=== PATIENT | male | born 1995 | race Hispanic/Latino ===

== ENCOUNTER 2017-07-02 18:24 | Emergency (ER) | payer OTHER ==
[~2017-07-02] VITALS: Ht 170.2 cm; Wt 77.2 kg
[2017-07-02] MEDS ORDERED: IBUP1TAB6 PO (19:44)
[2017-07-02] MEDS ORDERED: CYCL10TA PO (19:44)
[2017-07-02] MEDS ORDERED: CYCLOBENZAPRINE 10 MG TAB PO ONE (19:45)
[2017-07-02 19:51] VITALS: BP 140/68
== END 2017-07-02 19:55 | disposition home or self-care (01) ==
LOC: M ED 18:24
DX: S16.1XXA Strain of muscle, fascia and tendon at neck level, initial encounter (principal)

== ENCOUNTER 2018-02-25 10:33 | Emergency (ER) | payer OTHER ==
[2018-02-25] MEDS: NAPROXEN 250 MG TAB PO (11:56)
== END 2018-02-25 13:09 | disposition home or self-care (01) ==
LOC: M ED 10:33
DX: S80.01XA Contusion of right knee, initial encounter (principal); W10.8XXA Fall (on) (from) other stairs and steps, initial encounter; Y92.098 Other place in other non-institutional residence as the place of occurrence of the external cause
CPT/HCPCS: 73564

== ENCOUNTER 2018-09-02 17:28 | Emergency (ER) | payer OTHER ==
[~2018-09-02] VITALS: Ht 170.2 cm; Wt 83.2 kg
[~2018-09-02 17:28] MED LIST: CYCL10TA PO; IBUP1TAB6 PO; NAPR-50 PO
[2018-09-02] MEDS ORDERED: LIDOCAINE W/EPINEPHRINE 1% 20ML VIAL SC ONE (19:30)
[2018-09-02 19:59] VITALS: BP 131/68
== END 2018-09-02 20:01 | disposition home or self-care (01) ==
LOC: M ED 17:28
DX: S51.811A Laceration without foreign body of right forearm, initial encounter (principal); W26.0XXA Contact with knife, initial encounter; Y92.098 Other place in other non-institutional residence as the place of occurrence of the external cause